=== PATIENT | female | born 1945 | race Caucasian/White ===

== ENCOUNTER → 2019-05-17 06:35 | Outpatient (CLI) | payer MEDICARE, OTHER, SELFPAY ==
[2019-05-17 08:40] LABS: Alanine Aminotransferase 20 IU/L (<35); Albumin Globulin Ratio 1.4 (1.0-2.8); Alkaline Phosphatase 56 U/L (38-126); Aspartate Aminotransferase 28 IU/L (14-36); BUN Creatinine Ratio 21.3 (6-22); Bilirubin Total 0.8 mg/dL (0.2-1.3); Blood Urea Nitrogen 17 mg/dL (7-17); Calcium 9.3 mg/dL (8.4-10.2); Carbon Dioxide 25 mmol/L (22-32); Chloride 107 mmol/L (98-107); Cholesterol 196 mg/dL (140-199); Estimated Glomerular Filt Rate > 60.0 mL/min (>60); Globulin 2.8 g/dL (1.7-4.1); Glucose 94 mg/dL (80-110); HDL Cholesterol 43 mg/dL (40-60); HEMOLYSIS < 15 (0-50); LDL Cholesterol Calculated 125 mg/dL (<100); Potassium 4.1 mmol/L (3.4-5.1); Sodium 141 mmol/L (137-145); Total Protein 6.8 g/dL (6.3-8.2); Triglycerides 139 mg/dL (35-150)
[2019-05-17 08:48] LABS: Add Manual Diff / Slide Review NO; Basophils Absolute Auto 0 /uL (0-100); Basophils Percent Auto 0.4 % (0-2); Eosinophils Absolute Auto 100 /uL (0-450); Eosinophils Percent Auto 1.6 % (2-4); Hematocrit 42.1 % (36-46); Hemoglobin 14.2 g/dL (12.0-16.0); Lymphocytes Absolute Auto 1700 /uL (1100-4500); Lymphocytes Percent Auto 26.3 % (25-40); Mean Corpuscular HGB Conc 33.7 % (30-36); Mean Corpuscular Hemoglobin 29.9 PG (26-34); Mean Corpuscular Volume 88.8 fL (80-100); Monocytes Absolute Auto 400 /uL (0-900); Monocytes Percent Auto 6.7 % (3-14); Neutrophils Absolute Auto 4100 /uL (1500-7000); Platelet Count 266 X10^3/uL (150-400); Red Blood Cell Count 4.75 X10^6/uL (4.0-5.2); Red Cell Distribution Width 14.9 % (11.6-14.8); White Blood Cell Count 6.3 X10^3/uL (4.5-11.0)
[2019-05-17 09:08] LABS: Thyroid Stimulating Hormone 4.49 uIU/mL (0.47-4.68)
== END ==
PROVIDERS: PCP Physician Assistant; Visit Provider Physician Assistant
DX: E03.9 Hypothyroidism, unspecified (principal); E78.2 Mixed hyperlipidemia
CPT/HCPCS: 36415; 80053; 80061; 84443; 85025

== ENCOUNTER → 2019-05-26 17:06 | Outpatient (CLI) | payer MEDICARE, OTHER, SELFPAY ==
--- NOTE | 2019-05-26 | DI.MG.S_ITS ---
BILATERAL DIGITAL SCREENING MAMMOGRAM 3D/2D WITH CAD: 05/26/2019 CLINICAL: Routine screening. Comparison is made to exams dated: 12/09/2016 mammogram, 04/30/2015 mammogram, 09/07/2013 mammogram, and 07/24/2017 mammogram - [facility]. The tissue of both breasts is heterogeneously dense. This may lower the sensitivity of mammography. Current study was also evaluated with a Computer Aided Detection (CAD) system. No significant masses, calcifications, or other findings are seen in either breast. There has been no significant interval change. IMPRESSION: NEGATIVE There is no mammographic evidence of malignancy. A 1 year screening mammogram is recommended. This exam was interpreted at Station ID: [id number]. NOTE: For mammograms, a report in lay terms will be sent to the patient. Approximately 15% of breast malignancies will not be visualized mammographically. In the management of a palpable breast mass, a negative mammogram must not discourage biopsy of a clinically suspicious lesion. Electronically Signed By: Warner augustin/zoe:05/26/2019 22:14:44 letter sent: Normal Exam ACR BI-RADS Category 1: Negative 3341F
== END ==
PROVIDERS: PCP Physician Assistant; Visit Provider Physician Assistant
DX: Z12.31 Encounter for screening mammogram for malignant neoplasm of breast (principal)
CPT/HCPCS: 77063; 77067

== ENCOUNTER → 2020-06-04 15:20 | Outpatient (ROUT) | payer MEDICARE, OTHER, SELFPAY ==
[2020-06-04 15:37] LABS: Add Manual Diff / Slide Review NO; Basophils Absolute Auto 0 /uL (0-100); Basophils Percent Auto 0.5 % (0-2); Eosinophils Absolute Auto 100 /uL (0-450); Eosinophils Percent Auto 0.7 % (2-4); Hematocrit 42.2 % (36-46); Hemoglobin 13.9 g/dL (12.0-16.0); Lymphocytes Absolute Auto 1700 /uL (1100-4500); Lymphocytes Percent Auto 23.1 % (25-40); Mean Corpuscular HGB Conc 32.9 % (30-36); Mean Corpuscular Hemoglobin 29.8 PG (26-34); Mean Corpuscular Volume 90.4 fL (80-100); Monocytes Absolute Auto 400 /uL (0-900); Monocytes Percent Auto 6.1 % (3-14); Neutrophils Absolute Auto 5100 /uL (1500-7000); Neutrophils Percent Auto 69.6 % (50-75); Platelet Count 255 X10^3/uL (150-400); Red Blood Cell Count 4.67 X10^6/uL (4.0-5.2); Red Cell Distribution Width 13.7 % (11.6-14.8); White Blood Cell Count 7.3 X10^3/uL (4.5-11.0)
[2020-06-04 15:40] LABS: HEMOLYSIS < 15 (0-50); Iron 104 ug/dL (37-170)
[2020-06-04 15:44] LABS: Alanine Aminotransferase 20 IU/L (<35); Albumin 3.8 g/dL (3.5-5.0); Albumin Globulin Ratio 1.3 (1.0-2.8); Alkaline Phosphatase 69 U/L (38-126); Aspartate Aminotransferase 30 IU/L (14-36); Bilirubin Total 0.6 mg/dL (0.2-1.3); Blood Urea Nitrogen 17 mg/dL (7-17); Calcium 9.1 mg/dL (8.4-10.2); Carbon Dioxide 27 mmol/L (22-32); Chloride 105 mmol/L (98-107); Cholesterol 195 mg/dL (140-199); Estimated Glomerular Filt Rate > 60.0 mL/min (>60); Globulin 2.9 g/dL (1.7-4.1); Glucose 97 mg/dL (80-110); HDL Cholesterol 48 mg/dL (40-60); HEMOLYSIS < 15 (0-50); LDL Cholesterol Calculated 118 mg/dL (<100); Potassium 3.9 mmol/L (3.4-5.1); Sodium 135 mmol/L (137-145); Total Protein 6.7 g/dL (6.3-8.2); Triglycerides 146 mg/dL (35-150)
[2020-06-04 15:53] LABS: Percent Iron Saturation 36 % (15-50); Total Iron Binding Capacity 290 ug/dL (265-497); Transferrin 208 mg/dL (206-381)
[2020-06-04 16:12] LABS: TSH w/ Reflex to FT4 2.44 uIU/mL (0.47-4.68)
[2020-06-04 16:18] LABS: Ferritin 85 ng/mL (11-264)
== END ==
PROVIDERS: PCP Physician Assistant; Visit Provider Physician Assistant
DX: Z23 Encounter for immunization (principal); N39.0 Urinary tract infection, site not specified; E61.1 Iron deficiency; E03.9 Hypothyroidism, unspecified; E55.9 Vitamin D deficiency, unspecified; E78.00 Pure hypercholesterolemia, unspecified
CPT/HCPCS: 80053; 80061; 82306; 82728; 83540; 83550; 84443; 85025; 87086

== ENCOUNTER → 2021-05-20 15:07 | Outpatient (CLI) | payer MEDICARE, OTHER, SELFPAY ==
--- NOTE | 2021-05-20 | DI.MG.S_ITS ---
BILATERAL DIGITAL SCREENING MAMMOGRAM 3D/2D WITH CAD: 05/20/2021 CLINICAL: Routine screening. Comparison is made to exams dated: 05/26/2019 mammogram, 07/24/2017 mammogram, 12/09/2016 mammogram, and 04/30/2015 mammogram - [facility]. The tissue of both breasts is heterogeneously dense. This may lower the sensitivity of mammography. Current study was also evaluated with a Computer Aided Detection (CAD) system. There is a benign focal asymmetry in the left breast in the central breast, posterior nipple line, middle depth. This is unchanged on tomogram compared to prior mammogram on 05/26/2019.. No significant masses, calcifications, or other findings are seen in either breast. There has been no significant interval change. IMPRESSION: BENIGN There is no mammographic evidence of malignancy. A 1 year screening mammogram is recommended. This exam was interpreted at Station ID: [id number]. NOTE: For mammograms, a report in lay terms will be sent to the patient. Approximately 15% of breast malignancies will not be visualized mammographically. In the management of a palpable breast mass, a negative mammogram must not discourage biopsy of a clinically suspicious lesion. Electronically Signed By: Gabe Meng acr/:05/20/2021 17:08:30 letter sent: Normal Exam ACR BI-RADS Category 2: Benign Finding(s) 3342F
== END ==
PROVIDERS: PCP Physician Assistant; Referring Provider Physician Assistant; Visit Provider Physician Assistant
DX: Z12.31 Encounter for screening mammogram for malignant neoplasm of breast (principal)
CPT/HCPCS: 77063; 77067

== ENCOUNTER → 2023-04-14 08:08 | Outpatient (CLI) | payer MEDICARE, OTHER, SELFPAY | PROVIDERS: PCP Physician Assistant; Visit Provider Physician Assistant | DX: R30.0 Dysuria (principal) | CPT/HCPCS: 87086 ==

== ENCOUNTER → 2023-04-17 10:19 | Outpatient (CLI) | payer MEDICARE, OTHER, SELFPAY ==
--- NOTE | 2023-04-17 | DI.MG.S_ITS ---
BILATERAL DIGITAL SCREENING MAMMOGRAM 3D/2D WITH CAD: 04/17/2023 CLINICAL: Routine screening. Comparison is made to exams dated: 05/20/2021 mammogram, 05/26/2019 mammogram, and 12/09/2016 mammogram - [facility]. Both breasts are heterogeneously dense, which may obscure small masses (category c / 51-75% glandular tissue). Current study was also evaluated with a Computer Aided Detection (CAD) system. There is a benign focal asymmetry in the left breast. No significant masses, calcifications, or other findings are seen in either breast. There has been no significant interval change. IMPRESSION: BENIGN There is no mammographic evidence of malignancy. A 1 year screening mammogram is recommended. Based on the Tyrer Cuzick model (a risk assessment model) the patient's lifetime risk is 6.0% and her 10 year risk is 6.0%. According to the ACR, ACS, and NCCN guidelines, an annual breast MRI exam along with mammogram is recommended if the patient's lifetime risk is 20% or greater. This exam was interpreted at Station ID: [id number]. NOTE: For mammograms, a report in lay terms will be sent to the patient. Approximately 15% of breast malignancies will not be visualized mammographically. In the management of a palpable breast mass, a negative mammogram must not discourage biopsy of a clinically suspicious lesion. Electronically Signed By: Ashleigh fernandez/zoe:04/17/2023 11:18:01 letter sent: Normal Exam ACR BI-RADS Category 2: Benign Finding(s) 3342F
== END ==
PROVIDERS: PCP Physician Assistant; Referring Provider Physician Assistant; Visit Provider Physician Assistant
DX: Z12.31 Encounter for screening mammogram for malignant neoplasm of breast (principal)
CPT/HCPCS: 77063; 77067

== ENCOUNTER → 2024-02-02 12:03 | Outpatient (CLI) | payer MEDICARE, OTHER, SELFPAY ==
--- NOTE | 2024-02-02 12:05 | DI.RAD.S_ITS ---
PROCEDURE: XR DEXA AXIAL SKELETON INDICATIONS: osteoporosis COMPARISON: None. FINDINGS: Lumbar Spine: Bone mineral density 1.06 air in g/cm2, T score 0 .5 Left Hip: Bone mineral density < .777 g/cm2, T score -1.4 Left Femoral Neck: Bone mineral density < 0.463 g/cm2, T score -2.6 Right Hip: Bone mineral density 0.712 g/cm2, T score -1.9 Right Femoral Neck: Bone mineral density 0.587 g/cm2, T score -2.4 Fracture Risk Calculation (when applicable): 10-year fracture risk of a major osteoporotic fracture is 24% (T score greater or equal to -1.0 to: NORMAL) (T score from -1.1 to -2.4: OSTEOPENIA) (T score less than or equal to -2.5: OSTEOPOROSIS) IMPRESSION: Osteoporosis of the left femoral neck. Osteopenia of the right femoral neck, left hip and right femoral neck. The lumbar spine is normal. Follow-up guidelines as follows: Osteoporosis: Consider a repeat DEXA and Vertebral Fracture Assessment (VFA) exam in 2 years or sooner if medically necessary, to reassess this patient's status. Osteopenia: Consider a repeat DEXA in 2-3 years to reassess this patient's status, or if there is a new clinical indication. Normal: Consider a repeat DEXA in 5 years or sooner, or if there is a new clinical indication. All treatment decisions require clinical judgment and consideration of individual patient factors, including patient preferences, comorbidities, previous drug use, risk factors not captured in the FRAX model (e.g., frailty, falls, vitamin D deficiency, increased bone turnover, interval significant decline in bone density ) and possible under- or over-estimation of fracture risk by FRAX. In addition, the NOF Guide recommends that FDA-approved medical therapies be considered in postmenopausal women and men age >= 50 years with a: * Hip or vertebral (clinical or morphometric) fracture * T-score of <=-2.5 at the spine or hip * Ten-year fracture probability by FRAX of >= 3% for hip fracture or >=20% for major osteoporotic fracture. People with diagnosed cases of osteoporosis or at high risk for fracture should have regular bone mineral density tests. For patients eligible for Medicare, routine testing is allowed once every 2 years. The testing frequency can be increased to one year for patients who have rapidly progressing disease, those who are receiving or discontinuing medical therapy to restore bone mass, or have additional risk factors. Dictated by: Ruddy Cervantes M.D. on 02/02/2024 at 16:58 Approved by: Ruddy Cervantes M.D. on 02/02/2024 at 17:07
== END ==
PROVIDERS: PCP Nurse Practitioner; Referring Provider Nurse Practitioner; Visit Provider Nurse Practitioner
DX: M81.0 Age-related osteoporosis without current pathological fracture (principal)
CPT/HCPCS: 77080

== ENCOUNTER 2024-05-23 09:41 | Day surgery (SDC) | payer MEDICARE, OTHER, SELFPAY ==
[2024-05-23 10:34] VITALS: BP 147/92; PULSE 79; RESP 17; TEMP 36.9; O2SAT 96
--- NOTE | 2024-05-23 10:54 | PM.OP.COLON ---
Operative Date/Time/Diagnoses Date of procedure: 05/23/24 Pre-op diagnosis: See indication and findings Procedure & Clinicians Study performed: Colonoscopy colonoscopy Indications: Cologuard positive Surgeon: Arnel Ghosh Procedure Notes Procedure in detail: After informed consent was obtained the patient was placed in left lateral decubitus position. The video colonoscope was introduced the rectum slowly advanced cecum. Preparation was good. On slow withdrawal mucosa was carefully examined. The scope was removed. Patient tolerated procedure well. Blood loss none Complications none Sedation mac Findings 1. Severe sigmoid diverticulosis 2. Otherwise negative colonoscopy to cecum If patient is anemic consider upper endoscopy.
--- NOTE | 2024-05-23 10:55 | P.HP_ITS ---
History of Present Illness History of Present Illness [place] [facility] [place]: Cologuard positivity. Also has a distant history of possible colitis and a history of polyps. [facility] Medical History (Updated 01/01/24 @ 09:41 by SHANE Orantes) Hyperlipidemia Wears glasses Stasis dermatitis (~2023) Osteoarthritis Osteoporosis Lumbar disc disease Chronic back pain Tinnitus OAB (overactive bladder) Hypothyroidism Family History Father History of heart disease Mother Hyperlipidemia Social History Smoking Status: Never smoker alcohol intake: current Meds Home Medications and Allergies Home Medications Medication Instructions Recorded Confirmed Type diazepam 5 mg tablet 5 mg PO BID PRN Anxiety 12/28/23 05/23/24 History levothyroxine 88 mcg tablet 88 mcg PO DAILY #90 tabs 12/28/23 05/23/24 Rx meloxicam 7.5 mg tablet 7.5 mg PO BID #180 tabs 12/28/23 05/23/24 Rx triamcinolone acetonide 0.1 % 1 applic topical DAILY PRN stasis 12/28/23 05/23/24 Rx topical ointment dermatitis #30 grams tolterodine 2 mg tablet (Detrol) 2 mg PO BID 05/23/24 05/23/24 History Allergies Allergy/AdvReac Type Severity Reaction Status Date / Time No Known Allergies Allergy Uncoded 05/23/24 10:26 Exam Vital Signs (past 8 hours): - 05/23/24 10:34 Temperature 98.4 F Pulse Rate 79 Respiratory Rate 17 Blood Pressure 147/92 H Pulse Oximetry 96 Oxygen Delivery Method Room Air Oxygen Delivery Method Room Air Narrative Exam Narrative: Oropharynx free of lesions Chest clear to auscultation percussion Cardiac exam reveals no S3 or murmur Assessment & Plan Assessment & Plan narrative: Cologuard positivity need for colonoscopy to rule out neoplasia. Risks, benefits, alternatives have been explained. Time-Based Coding :: [TOTAL MINUTES] spent with patient and on the chart (including review of chart, obtaining history, exam, reviewing outside data, placing orders, documenting exam and treatment plan, and counseling patient) on [DATE].
[2024-05-23 11:23] VITALS: BP 78/53; PULSE 56; RESP 14; TEMP 36.4; O2SAT 96
[2024-05-23 11:28] VITALS: BP 110/76; PULSE 81; RESP 18; O2SAT 95
[2024-05-23 11:34] VITALS: BP 119/75; PULSE 76; RESP 18; TEMP 36.6; O2SAT 94
[2024-05-23 11:38] VITALS: BP 130/80; PULSE 76; RESP 14; O2SAT 94
[2024-05-23 11:51] VITALS: BP 124/87; PULSE 70; RESP 16; TEMP 36.6; O2SAT 70
== END 2024-05-23 12:00 | disposition home or self-care (01) ==
PROVIDERS: PCP Nurse Practitioner; Referring Provider Internal Medicine Gastroenterology; Visit Provider Internal Medicine Gastroenterology
PROC: 0DJD8ZZ Inspection of Lower Intestinal Tract, Via Natural or Artificial Opening Endoscopic (ICD-10-PCS; CPT 45378; principal; 2024-05-23 11:00)
DX: Z12.11 Encounter for screening for malignant neoplasm of colon (principal); R19.5 Other fecal abnormalities; K57.30 Diverticulosis of large intestine without perforation or abscess without bleeding
CPT/HCPCS: G0121; J2704; J3010

== ENCOUNTER → 2024-08-23 09:26 | Outpatient (CLI) | payer MEDICARE, OTHER, SELFPAY ==
--- NOTE | 2024-08-23 09:28 | DI.RAD.S_ITS ---
PROCEDURE: XR KNEE LT 3V INDICATIONS: chronic bilateral knee pain TECHNIQUE: 3 views of the knee were acquired. COMPARISON: [facility], , KNEE 3V RIGHT, 07/09/2017, 10:39. FINDINGS: Bones: No fractures or dislocations. No suspicious bony lesions. Moderate to severe medial and moderate lateral tibiofemoral compartment narrowing with associated osteophytosis. Severe patellofemoral compartment narrowing with associated osteophytosis. Soft tissues: Small joint effusion. No suspicious soft tissue calcifications. IMPRESSION: Kellgren Louie grade 4 tricompartmental osteoarthritis without evidence of acute osseous abnormality. Small effusion noted. Dictated by: Jamey Jones M.D. on 08/23/2024 at 22:47 Approved by: Jamey Jones M.D. on 08/23/2024 at 22:48
--- NOTE | 2024-08-23 09:28 | DI.RAD.S_ITS ---
PROCEDURE: XR KNEE RT 3V INDICATIONS: chronic bilateral knee pain TECHNIQUE: 3 views of the knee were acquired. COMPARISON: [facility], , KNEE 3V RIGHT, 07/09/2017, 10:39. FINDINGS: Bones: No fractures or dislocations. No suspicious bony lesions moderate to severe medial and lateral tibiofemoral compartment narrowing with associated osteophytosis. Severe patellofemoral compartment narrowing with associated osteophytosis.. Soft tissues: Moderate joint effusion. No suspicious soft tissue calcifications. IMPRESSION: Kellgren Louie grade 4 tricompartmental osteoarthritis without evidence of acute osseous abnormality. Moderate joint effusion noted. Dictated by: Jamey Jones M.D. on 08/23/2024 at 22:48 Approved by: Jamey Jones M.D. on 08/23/2024 at 22:49
[2024-08-23 11:37] LABS: Alanine Aminotransferase 16 IU/L (<35); Albumin 4.2 g/dL (3.5-5.0); Albumin Globulin Ratio 1.4 (1.0-2.8); Alkaline Phosphatase 77 U/L (38-126); Aspartate Aminotransferase 30 IU/L (14-36); BUN Creatinine Ratio 16.7 (6-22); Bilirubin Total 0.6 mg/dL (0.2-1.3); Blood Urea Nitrogen 16 mg/dL (7-17); Calcium 9.5 mg/dL (8.4-10.2); Carbon Dioxide 27 mmol/L (22-32); Chloride 102 mmol/L (98-107); Cholesterol 246 mg/dL (140-199); Estimated Glomerular Filt Rate > 60 mL/min (>60); Globulin 2.9 g/dL (1.7-4.1); Glucose 91 mg/dL (80-110); HDL Cholesterol 53 mg/dL (40-60); HEMOLYSIS < 15 (0-50); LDL Cholesterol Calculated 165 mg/dL (<100); Potassium 4.8 mmol/L (3.4-5.1); Sodium 137 mmol/L (137-145); Total Protein 7.1 g/dL (6.3-8.2); Triglycerides 140 mg/dL (35-150)
[2024-08-23 12:06] LABS: Thyroid Stimulating Hormone 6.68 uIU/mL (0.47-4.68)
[2024-08-23 12:15] LABS: Hep C Virus Ab w/Reflex Quant NEGATIVE s/c (NEGATIVE)
[2024-08-23 12:34] LABS: Appearance Urine UA CLEAR; Bilirubin Urine UA NEGATIVE (NEGATIVE); Color Urine UA YELLOW; Glucose Urine UA NEGATIVE (Negative); Ketones Urine UA NEGATIVE (NEGATIVE); Leukocyte Esterase Urine UA 1+ (NEGATIVE); Nitrite Urine UA NEGATIVE (Negative); Occult Blood Urine UA NEGATIVE (Negative); Protein Urine UA NEGATIVE (Negative); Specific Gravity Urine UA 1.015 (1.000-1.035); Urobilinogen Urine UA 0.2 E.U./dL (0.2)
[2024-08-23 12:36] LABS: Urine Volume 10mL (spun)
[2024-08-23 12:37] LABS: Bacteria Urine None Seen; RBC Urine None Seen (0-5/HPF); Squamous Epithelial Cell Urine None Seen (0-5/HPF); WBC Urine 5-10/HPF (0-5/HPF)
[2024-08-23 12:38] LABS: Culture Indicated Urine Specimen Cultured
== END ==
PROVIDERS: Nurse Practitioner; PCP Family Medicine; Referring Provider Family Medicine; Visit Provider Family Medicine
DX: M17.0 Bilateral primary osteoarthritis of knee (principal); M25.561 Pain in right knee; M25.562 Pain in left knee; M25.461 Effusion, right knee; M25.462 Effusion, left knee; G89.29 Other chronic pain; M19.90 Unspecified osteoarthritis, unspecified site; E03.9 Hypothyroidism, unspecified; N32.81 Overactive bladder; M54.9 Dorsalgia, unspecified; E78.5 Hyperlipidemia, unspecified; Z11.59 Encounter for screening for other viral diseases; R39.15 Urgency of urination; Z79.899 Other long term (current) drug therapy
CPT/HCPCS: 36415; 73562; 80053; 80061; 81001; 84443; 86803; 87086

== ENCOUNTER → 2024-09-13 14:09 | Outpatient (CLI) | payer MEDICARE, OTHER, SELFPAY ==
--- NOTE | 2024-09-13 14:11 | DI.MG.S_ITS ---
MM screening mammo BI: 09/13/2024. BI-RADS: 1 CLINICAL: 79-year old female for bilateral screening mammogram. Tyrer-Cuzick lifetime risk of 8.5%. No personal or first-degree family history of breast cancer. PRIOR EXAMS 04/17/2023, 05/20/2021, 05/26/2019, 07/24/2017, 12/17/2016, 12/09/2016, 04/30/2015. MAMMOGRAPHY TECHNIQUE: 2D and 3D (tomosynthesis) digital mammographic views obtained, with additional images as needed for full coverage. Current study was also evaluated with a Computer Aided Detection (CAD) system. DENSITY C. The breasts are heterogeneously dense, which may obscure small masses. MAMMOGRAPHY FINDINGS Bilateral: No suspicious mass, asymmetry, microcalcification, or other abnormality seen. IMPRESSION: * No evidence of malignancy. RECOMMENDATIONS Bilateral * Annual screening mammography. OVERALL ASSESSMENT CATEGORY BI-RADS-1: Negative. The [employer] recommends annual screening mammography beginning at age 40 for women with average risk of breast cancer. ELECTRONICALLY SIGNED: Elise Clayton M.D. on 09/15/2024 at 04:24:01 PM PT Interpreting Station ID: [id number]
== END ==
PROVIDERS: PCP Family Medicine; Referring Provider Family Medicine; Visit Provider Family Medicine
DX: Z12.31 Encounter for screening mammogram for malignant neoplasm of breast (principal); R92.333 Mammographic heterogeneous density, bilateral breasts
CPT/HCPCS: 77063; 77067

== ENCOUNTER → 2024-10-07 10:10 | Outpatient (CLI) | payer MEDICARE, OTHER, SELFPAY ==
--- NOTE | 2024-10-07 10:32 | EKG_ITS ---
[place] [id number] [address] [place] [id number] Test Date: 2024-10-07 Pat Name: Nora Hurd Department: [facility] Room: Gender: Female Concrete Finisher: LUIS : 1945 Requested By: Order Number: [id number] Reading MD: Arturo Martni Measurements Intervals [place] Rate: 58 P: 4 WA: 166 QRS: -5 QRSD: 86 T: 13 QT: 464 QTc: 455 Interpretive Statements Sinus bradycardia Electronically Signed On 10-07-2024 19:11:26 PDT by Arturo Martin
== END ==
PROVIDERS: PCP Family Medicine; Referring Provider Orthopaedic Surgery Foot and Ankle Surgery; Visit Provider Orthopaedic Surgery Foot and Ankle Surgery
DX: Z01.818 Encounter for other preprocedural examination (principal)
CPT/HCPCS: 93005

== ENCOUNTER → 2024-10-19 08:35 | Outpatient (CLI) | payer MEDICARE, OTHER, SELFPAY ==
[2024-10-19 10:53] LABS: Thyroid Stimulating Hormone 0.773 uIU/mL (0.47-4.68)
== END ==
PROVIDERS: PCP Family Medicine; Referring Provider Family Medicine; Visit Provider Family Medicine
DX: E03.9 Hypothyroidism, unspecified (principal)
CPT/HCPCS: 36415; 84443

== ENCOUNTER 2025-01-22 19:46 | Emergency (ER) | payer MEDICARE, OTHER, SELFPAY ==
[2025-01-22] VITALS (7 sets, daily range): BP systolic 106–134; BP diastolic 61–77; PULSE 78–92; RESP 16; TEMP 37.2; O2SAT 90–98; BMI 30.7
--- NOTE | 2025-01-22 21:23 | ED_ITS ---
HPI - General Adult General Chief complaint: Abdominal Pain Stated complaint: 4 days, constipation, abd pain Time Seen by Provider: 01/22/25 21:22 Source: patient Mode of arrival: Wheelchair History of Present Illness HPI narrative: 79-year-old woman with a history of hypothyroidism had a right knee replacement on January 17 outpatient surgery. She did take some oxycodone on the and the has not taken any more beyond that. By the she was having nausea, cramps, reflux. She began using MiraLax by the , on the she added Zofran. Her last bowel movement was on the and was described as ?3 small peas?. She is not passing any gas with increasing abdominal pain, general malaise, decreased appetite no actual vomiting. No fevers Related Data Home Medications ?Medication ?Instructions ?Recorded ?Confirmed diazepam 5 mg tablet 5 mg PO BID PRN Anxiety 12/0501/22/25 oxycodone 5 mg tablet 5 mg PO Q4-6H PRN pain 01/2201/22/25 Previous Rx's ?Medication ?Instructions ?Recorded levothyroxine 100 mcg tablet 100 mcg PO DAILY #90 tabs 11/14/24 tolterodine 2 mg tablet (Detrol) 2 mg PO BID #180 tabs 01/16/25 Allergies Allergy/AdvReac Type Severity Reaction Status Date / Time No Known Drug Allergies Allergy Verified 01/22/25 20:37 Review of Systems Review of Systems Narrative: Pertinent positive and negative findings as per HPI Patient History Medical History Hyperlipidemia Wears glasses Stasis dermatitis (~2023) Osteoarthritis Osteoporosis Lumbar disc disease Chronic back pain Tinnitus OAB (overactive bladder) Hypothyroidism Family History Father History of heart disease Mother Hyperlipidemia Social History Smoking Status: Never smoker alcohol intake: current Smoking Status: Never smoker alcohol intake frequency: a few times a month Exam Initial Vital Signs Initial Vital Signs: Vital Signs Temperature 99 F 01/22/25 20:39 Pulse Rate 92 H 01/22/25 20:39 Respiratory Rate 16 01/22/25 20:39 Blood Pressure 106/61 01/22/25 20:39 Pulse Oximetry 94 01/22/25 20:39 Oxygen Delivery Method Room Air 01/22/25 20:39 General: Healthy appearing, in mild distress. Able to give a complete and coherent history. Well-nourished well-developed HEENT: Moist mucous membranes, normal sclera with reactive pupils, Respiratory: Lungs are clear to auscultation, no wheezing no rales no rhonchi. Full and symmetrical air movement Cardiac: Regular rate and rhythm Abdomen: Soft, diffusely tender without rebound or guarding. Bowel tones are not appreciated Skin: Warm and dry, no rashes Neurologic: Grossly neurologically intact with no obvious asymmetries or abnormalities Extremities: Bruising and mild swelling to the right leg as would be expected for 5 days postop. Psych: Cooperative, appropriate insight and affect Rectal exam: She does not have any stool in the vault Course Orders Ordered: ED Orders 01/22/25 22:12 Complete Blood Count AUTO DIFF Stat Comprehensive Metabolic Panel Stat Lactate (Lactic Acid) Stat 01/22/25 22:50 CT abdomen pelvis w con Stat Discontinued Medications Hydromorphone HCl (Hydromorphone Hcl 0.5 Mg/0.5 Ml Syringe) 0.5 mg IV NOW ONE Stop: 01/22/25 22:23 Last Admin: 01/22/25 22:27 Dose: 0.5 mg Documented By: KYLE Hydromorphone HCl (Hydromorphone Hcl 0.5 Mg/0.5 Ml Syringe) 0.5 mg IV NOW ONE Stop: 01/22/25 22:47 Last Admin: 01/22/25 22:49 Dose: 0.5 mg Documented By: KYLE Hydromorphone HCl (Hydromorphone Hcl 0.5 Mg/0.5 Ml Syringe) 0.5 mg IV Q15MIN PRN PRN Reason: Pain, Last Admin: 01/23/25 02:20 Dose: 0.5 mg Documented By: Admin: 01/23/25 00:35 Dose: 0.5 mg Documented By: MATA Sodium Chloride (Normal Saline 0.9%) 1,000 mls @ 1,000 mls/hr IV BOLUS ONE Stop: 01/22/25 23:21 Last Infusion: 01/22/25 23:30 Dose: Infused Documented By: Admin: 01/22/25 22:26 Dose: 1,000 mls/hr Documented By: KYLE Sodium Chloride (Normal Saline 0.9%) 1,000 mls @ 150 mls/hr IV CONT VALDEMAR Last Infusion: 01/23/25 03:01 Dose: 0 mls/hr Documented By: Admin: 01/23/25 00:35 Dose: 150 mls/hr Documented By: MATA Piperacillin Sod/Tazobactam (Sod 4.5 gm/ Sodium Chloride) 100 mls @ 200 mls/hr IV STAT ONE Stop: 01/23/25 00:18 Last Infusion: 01/23/25 02:03 Dose: Infused Documented By: Admin: 01/23/25 00:34 Dose: 200 mls/hr Documented By: MATA Ondansetron HCl (Ondansetron 4 Mg/2 Ml Inj) 4 mg IV NOW ONE Stop: 01/22/25 22:23 Last Admin: 01/22/25 22:27 Dose: 4 mg Documented By: KYLE Vital Signs Vital signs: Vital Signs - 8 hr 01/22/25 23:21 01/22/25 23:21 01/22/25 23:30 Pulse Rate 79 78 Blood Pressure 134/75 Pulse Oximetry 97 98 01/22/25 23:30 01/23/25 00:00 01/23/25 00:00 Pulse Rate 79 Blood Pressure 134/77 129/88 Pulse Oximetry 97 01/23/25 00:30 01/23/25 00:30 01/23/25 01:00 Pulse Rate 82 83 Blood Pressure 153/85 H Pulse Oximetry 96 96 01/23/25 01:01 01/23/25 01:01 01/23/25 01:30 Pulse Rate 83 Blood Pressure 124/65 114/66 Pulse Oximetry 96 01/23/25 01:30 01/23/25 02:00 01/23/25 02:00 Pulse Rate 79 81 Blood Pressure 135/75 Pulse Oximetry 97 99 Medical Decision Making Lab Data 01/22/25 22:12 01/22/25 22:12 Labs: Lab Results 01/22/25 Range/Units 22:12 WBC 7.0 (4.5-11.0) X10^3/uL RBC 4.33 (4.0-5.2) X10^6/uL Hgb 13.2 (12.0-16.0) g/dL Hct 39.0 (36-46) % MCV 89.9 (80-100) fL MCH 30.5 (26-34) PG MCHC 33.9 (30-36) % RDW 14.3 (11.6-14.8) % Plt Count 304 (150-400) X10^3/uL Neut % (Auto) 90.4 H (50-75) % Lymph % (Auto) 5.1 L (25-40) % [place] % (Auto) 4.1 (3-14) % Eos % (Auto) 0.1 L (2-4) % Baso % (Auto) 0.3 (0-2) % Neut # (Auto) 6300 (3209-1222) /uL Lymph # (Auto) 400 L (7410-7443) /uL [place] # (Auto) 300 (0-900) /uL Eos # (Auto) 0 (0-450) /uL Baso # (Auto) 0 (0-100) /uL Sodium 135 L (137-145) mmol/L Potassium 4.3 (3.4-5.1) mmol/L Chloride 102 (98-107) mmol/L Carbon Dioxide 25 (22-32) mmol/L BUN 31 H (7-17) mg/dL Creatinine 1.41 H (0.52-1.04) mg/dL Estimated GFR 38 L (>60) mL/min BUN/Creatinine Ratio 22.0 (6-22) Glucose 148 H (70-99) mg/dL Lactate 1.2 (0.7-2.1) mmol/L Calcium 10.7 H (8.4-10.2) mg/dL Total Bilirubin 1.2 (0.2-1.3) mg/dL AST 52 H (14-36) IU/L ALT 43 H (<35) IU/L Alkaline Phosphatase 68 (38-126) U/L Total Protein 7.2 (6.3-8.2) g/dL Albumin 3.8 (3.5-5.0) g/dL Globulin 3.4 (1.7-4.1) g/dL Albumin/Globulin Ratio 1.1 (1.0-2.8) Imaging Data CT scan - abdomen/pelvis: Radiologist's Impression: PROCEDURE: CT ABDOMEN PELVIS W CON INDICATIONS: abdominal pain TECHNIQUE: After the administration of intravenous contrast, axial sections acquired from the lung bases to the pubic symphysis. Coronal and sagittal reformats were performed. For radiation dose reduction, the following was used: automated exposure control, adjustment of mA and/or kV according to patient size. COMPARISON: None. FINDINGS: Image quality: Diagnostic. Lower Chest: Massive hiatal hernia containing nearly the complete stomach and a long segment of the cecum. The appendix is also present, which is noninflamed. Extraluminal gas is present. Small Morgagni hernia is present. ABDOMEN: Liver: No solid mass. Gallbladder: No radiopaque gallstones or wall thickening. Biliary ducts: No biliary dilation. Pancreas: No ductal dilation. Spleen: Size is within normal limits. Adrenal Glands: No adrenal nodules. Kidneys and Ureters: No hydronephrosis. No solid mass. No complex renal cystic lesion which requires follow up. Stomach and Bowel: There is wall thickening of the gastric pylorus and duodenal bulb. Colonic diverticulosis without evidence of diverticulitis. Peritoneum: Moderate volume pneumoperitoneum extensive diverticular disease. Small to moderate free fluid within the abdomen and pelvis. Ventral Wall: No significant ventral hernia. Abdominal Nodes: No retroperitoneal or mesenteric adenopathy by size criteria. Vessels: Aorta and inferior vena cava are normal in size. PELVIS: Pelvic Organs: Unremarkable. Bladder: No bladder wall thickening, accounting for underdistention. Pelvic Nodes: No enlarged lymph nodes. Miscellaneous: No inguinal hernias are seen. Bones: Grade 1 anterolisthesis L4 on L5 due to facet arthrosis. This results in moderate to severe bilateral neural foraminal narrowing at this level and moderate spinal canal narrowing. IMPRESSION: Moderate volume pneumoperitoneum. Source of the pneumoperitoneum is likely due to perforated bowel, with findings suspicious for perforated gastric or duodenal ulcer, less likely perforated diverticula. Small to moderate volume free fluid, presumably reactive. No abscess identified at this time. Pneumomediastinum is also present, due to the presence of a large hiatal hernia. Grade 1 anterolisthesis of L4 on L5, resulting in moderate to severe bilateral neural foraminal narrowing and moderate spinal canal narrowing. Dictated by: Hugo Rossi M.D. on 01/22/2025 at 23:36 MDM Narrative Medical decision making narrative: CC: Abdominal pain Complicating co-morbidities: Right knee replacement on the , last bowel movement on the Data collected from: patient, daughter Social determinants of health that may influence the patients condition: Medical records reviewed: Patient notes that she has not had any abdominal or pelvic surgeries Differential considered: Bowel obstruction, ileus, severe constipation, intra- abdominal abscess Exam documented above, pertinent findings include: Patient is experiencing more pain and tenderness in her abdomen with mild distention than she is from her postop right knee. She does not have stool in the rectal vault. Abdomen is distended but not acutely surgical Lab Test results independently reviewed as above. Pertinent findings: CBC is unremarkable Chemistries show slight bump to creatinine at 1.4. Calcium is minimally elevated at 10.7. AST and ALT are minimally elevated at 52 and 43 respectively Lactic acid is normal at 1.2 Imaging studies independently reviewed: CT scan shows pneumoperitoneum, pneumomediastinum concern for perforated gastric or duodenal ulcer and a large paraesophageal hernia is also appreciated reviewed in real-time with radiologist. Consultations: Reviewed with thoracic surgery at [facility],Dr Palma. We will consult. Recommends General surgery involvement who has been notified. We will be admitted to the sleep scientist,Dr Delvalle. Patient and her daughter are aware of concerns and need for transfer Treatments: Fluid, Zosyn, Dilaudid Discussion: 79-year-old woman with 4 days of increasing abdominal pain and bloating. Was concerned that it was secondary to constipation from narcotics she took for 48 hours after a knee replacement surgery on January [address] scan shows presumed bowel perforation with pneumoperitoneum and pneumomediastinum with large paraesophageal hernia. Care has been reviewed with team at [facility]. She will be admitted to the sleep scientist service, ICU with thoracic surgery and general surgery consulting. Further workup to completely elucidate findings and problems so planning for surgical intervention as appropriate. Patient will be transferred via ALS Discharge Plan Departure Patient Disposition: [facility] Clinical Impression: Bowel perforation, Paraesophageal hernia Prescriptions: No Action levothyroxine 100 mcg tablet 100 mcg PO DAILY Qty: 90 2RF Rx Instructions: Dose change. D/C 88mcg. tolterodine [Detrol] 2 mg tablet 2 mg PO BID Qty: 180 1RF diazepam 5 mg tablet 5 mg PO BID PRN (Reason: Anxiety) Rx Instructions: For travel, flying oxycodone 5 mg tablet 5 mg PO Q4-6H PRN (Reason: pain) Referrals: Lorin Argueta DO [Primary Care Provider, Family Practice]
[2025-01-22] MEDS: SODIUM CHLORIDE 0.9% 1,000 ML 1000 ML IV (22:26)
[2025-01-22] MEDS: ONDANSETRON 4 MG/2 ML INJ IV (22:27)
--- NOTE | 2025-01-22 22:50 | DI.CT.S_ITS ---
PROCEDURE: CT ABDOMEN PELVIS W CON INDICATIONS: abdominal pain TECHNIQUE: After the administration of intravenous contrast, axial sections acquired from the lung bases to the pubic symphysis. Coronal and sagittal reformats were performed. For radiation dose reduction, the following was used: automated exposure control, adjustment of mA and/or kV according to patient size. COMPARISON: None. FINDINGS: Image quality: Diagnostic. Lower Chest: Massive hiatal hernia containing nearly the complete stomach and a long segment of the cecum. The appendix is also present, which is noninflamed. Extraluminal gas is present. Small Morgagni hernia is present. ABDOMEN: Liver: No solid mass. Gallbladder: No radiopaque gallstones or wall thickening. Biliary ducts: No biliary dilation. Pancreas: No ductal dilation. Spleen: Size is within normal limits. Adrenal Glands: No adrenal nodules. Kidneys and Ureters: No hydronephrosis. No solid mass. No complex renal cystic lesion which requires follow up. Stomach and Bowel: There is wall thickening of the gastric pylorus and duodenal bulb. Colonic diverticulosis without evidence of diverticulitis. Peritoneum: Moderate volume pneumoperitoneum extensive diverticular disease. Small to moderate free fluid within the abdomen and pelvis. Ventral Wall: No significant ventral hernia. Abdominal Nodes: No retroperitoneal or mesenteric adenopathy by size criteria. Vessels: Aorta and inferior vena cava are normal in size. PELVIS: Pelvic Organs: Unremarkable. Bladder: No bladder wall thickening, accounting for underdistention. Pelvic Nodes: No enlarged lymph nodes. Miscellaneous: No inguinal hernias are seen. Bones: Grade 1 anterolisthesis L4 on L5 due to facet arthrosis. This results in moderate to severe bilateral neural foraminal narrowing at this level and moderate spinal canal narrowing. IMPRESSION: Moderate volume pneumoperitoneum. Source of the pneumoperitoneum is likely due to perforated bowel, with findings suspicious for perforated gastric or duodenal ulcer, less likely perforated diverticula. Small to moderate volume free fluid, presumably reactive. No abscess identified at this time. Pneumomediastinum is also present, due to the presence of a large hiatal hernia. Grade 1 anterolisthesis of L4 on L5, resulting in moderate to severe bilateral neural foraminal narrowing and moderate spinal canal narrowing. Dictated by: Hugo Rossi M.D. on 01/22/2025 at 23:36 Approved by: Hugo Rossi M.D. on 01/22/2025 at 23:47
[2025-01-22 23:02] LABS: Alanine Aminotransferase 43 IU/L (<35); Albumin 3.8 g/dL (3.5-5.0); Albumin Globulin Ratio 1.1 (1.0-2.8); Alkaline Phosphatase 68 U/L (38-126); Blood Urea Nitrogen 31 mg/dL (7-17); Calcium 10.7 mg/dL (8.4-10.2); Carbon Dioxide 25 mmol/L (22-32); Chloride 102 mmol/L (98-107); Estimated Glomerular Filt Rate 38 mL/min (>60); Globulin 3.4 g/dL (1.7-4.1); Glucose 148 mg/dL (70-99); HEMOLYSIS < 15 (0-50); Lactate (Lactic Acid) 1.2 mmol/L (0.7-2.1); Potassium 4.3 mmol/L (3.4-5.1); Sodium 135 mmol/L (137-145); Total Protein 7.2 g/dL (6.3-8.2)
[2025-01-22 23:08] LABS: Add Manual Diff / Slide Review NO; Hematocrit 39.0 % (36-46); Hemoglobin 13.2 g/dL (12.0-16.0); Lymphocytes Absolute Auto 400 /uL (1100-4500); Mean Corpuscular HGB Conc 33.9 % (30-36); Mean Corpuscular Hemoglobin 30.5 PG (26-34); Mean Corpuscular Volume 89.9 fL (80-100); Platelet Count 304 X10^3/uL (150-400)
[2025-01-23] VITALS: BP 129/88; PULSE 79; O2SAT 97
[2025-01-23 00:30] VITALS: BP 153/85; PULSE 82; O2SAT 96
[2025-01-23] MEDS: PIPERACILLIN/TAZO 4.5 GM in SODIUM CHLORIDE 0.9% 100 ML IV (00:34)
[2025-01-23] MEDS: SODIUM CHLORIDE 0.9% 1,000 ML 150 ML IV (00:35)
[2025-01-23 01:00] VITALS: PULSE 83; O2SAT 96
[2025-01-23 01:01] VITALS: BP 124/65; PULSE 83; O2SAT 96
[2025-01-23 01:30] VITALS: BP 114/66; PULSE 79; O2SAT 97
[2025-01-23 02:00] VITALS: BP 135/75; PULSE 81; O2SAT 99
--- NOTE | 2025-01-23 06:17 | PC.NURSE ---
discussed with pt prior to her leaving that I had talked with her daughter and that I would call her daughter this am after she had a few hours of sleep and let her know where she admitted, pt was okay with the plan. Pt's daughter Thais called this am about 0620 @ [phone] and informed that the pt was admitted to ICU at [facility] and she could call for updated information as to further testing and surgery
== END 2025-01-23 02:39 | disposition short-term general hospital (02) ==
PROVIDERS: Emergency Provider Emergency Medicine; PCP Family Medicine
DX: K63.1 Perforation of intestine (nontraumatic) (principal); K44.9 Diaphragmatic hernia without obstruction or gangrene
CPT/HCPCS: 36415; 74177; 80053; 83605; 85025; 96361; 96365; 96375; 96376; 99284; 99285; J1171; J2405; J2543; Q9967

== ENCOUNTER → 2025-04-14 09:53 | Outpatient (CLI) | payer MEDICARE, OTHER, SELFPAY ==
--- NOTE | 2025-04-14 09:54 | DI.US.S_ITS ---
PROCEDURE: US ABDOMEN LIMITED INDICATIONS: POST-OP HIATAL HERNIA REPAIR. LT UMB. PAIN. SKIN ITCHY ?GB TECHNIQUE: Real-time focused scanning was performed of the abdomen, with image documentation. COMPARISON: None. FINDINGS: Decreased visualization of the liver due to body habitus. Mild diffuse hyperechogenicity throughout the parenchyma. Amorphous increased parenchymal echogenicity at the michael hepatis consistent with focal fat infiltration. No liver mass or intrahepatic biliary dilatation. Gallbladder contains of small amount of mobile, dependently layering gravel and sludge. The wall thickness is normal. No pericholecystic fluid or sonographic Pappas sign. The extrahepatic common duct measures 8.8 mm, within normal limits for patient's age. There is a tiny fat containing left periumbilical hernia with a fascial defect measuring about 5 mm. This corresponds to the area of discomfort. Elsewhere along the midline incision, there are several tiny subcutaneous, anechoic fluid collections ranging in size from 1.2 cm to 2.4 cm. No definite complex fluid, solid components, or hypervascularity. Feeding tube tract is identified and fluid-filled. IMPRESSION: At the site of left periumbilical discomfort, there is a tiny, reducible, fat containing hernia. Cholelithiasis without cholecystitis. Mild hepatic steatosis. Several small subcutaneous fluid collections along the midline incision, expected appearance of seromas in the postoperative phase. No follow-up needed. Feeding tube tract as expected. Dictated by: Liz Russell M.D. on 04/15/2025 at 20:08 Approved by: Liz Russell M.D. on 04/15/2025 at 20:21
== END ==
LOC: US 09:54
PROVIDERS: PCP Family Medicine; Referring Provider Family Medicine; Visit Provider Family Medicine
DX: K80.20 Calculus of gallbladder without cholecystitis without obstruction (principal); K76.0 Fatty (change of) liver, not elsewhere classified; G89.18 Other acute postprocedural pain; K25.9 Gastric ulcer, unspecified as acute or chronic, without hemorrhage or perforation; K57.30 Diverticulosis of large intestine without perforation or abscess without bleeding; R10.32 Left lower quadrant pain; L29.9 Pruritus, unspecified; Z93.1 Gastrostomy status
CPT/HCPCS: 76705